=== PATIENT | male | born 1965 | race Caucasian/White ===

== ENCOUNTER → 2016-10-31 | Outpatient (CLI) | payer SELFPAY ==
[~2016-10-31] MED LIST: ALL DAY ALLERGY10 M2 PO; ASPIRIN EC81 M1 PO; CETIRIZINE HCL10 MG PO; FLEXERIL10 MG PO; GLUCOPHAGE XR500 MG PO; IBUPROFEN800 MG PO; METFORMIN HCL500 M1 PO; NORVASC PO; PRINIVIL20 M1 PO; Z-PAK
--- NOTE | ~2016-10-31 | NM23 ---
[facility] A Service of [facility] / [facility] RADIOLOGY TEXT RESULTS PATIENT: CHARLINE FREEMAN LOCATION: [facility] : 67 UNIT #: [id number] AGE: [address]: Lenard Fisher MD SEX: M ORDER DR: [id number] [facility]. [place], [place] [address] [id number] O MR#: [id number] Acc #: [id number] NAME: CHARLINE FREEMAN : 1965 SEX: M STUDY DATE/TIME: 10/31/2016 11:28 UNIT: [facility] ROOM: STUDY DESCRIPTION: [place] I-131 Total Body Scan Attending Physician: Lenard Fisher M.D. Referring Physician: Lenard Fisher M.D. Ordering Physician: Lenard Fisher M.D. Primary Care Physician: Jairo Zhang M.D. MEDICAL IMAGING REPORT This report is preliminary unless electronic signature is present EXAM Iodine-131, whole body scan. INDICATION Thyroid cancer. TECHNIQUE The patient was given 4.5 mcCi of Iodine 131, and 48 hours later, anterior and posterior images of the body were obtained. FINDINGS There is physiologic uptake in the salivary glands and in the bowel and bladder. There is no evidence of metastatic disease. IMPRESSION The study is negative for any evidence of metastatic disease. Dictated by... Fantasma Crawford M.D. THIS IS AN ELECTRONICALLY VERIFIED REPORT Fantasma Crawford M.D. at 11/01/2016 7:14 AM ANAHY/ina TD: 10/31/2016 19:51 JOB #: [id number] MEDICAL IMAGING REPORT Page 1 of 1 COPY
== END | disposition home or self-care (01) ==
LOC: CNUC 11:00
DX: C73 Malignant neoplasm of thyroid gland (principal)
CPT/HCPCS: 78018; A9528